=== PATIENT | female | born 1975 | race Caucasian/White ===

== ENCOUNTER 2018-04-12 19:40 | Emergency (ER) | payer OTHER ==
[2018-04-12 20:11] VITALS: BP 134/76; PULSE 89; TEMP 98.5; BMI 41.6
--- NOTE | 2018-04-12 20:12 | PDOC ---
Rapid Medical Evaluation Chief Complaint: Injury Medical Evaluation: 04/12/18 20:08 I have performed a brief in-person evaluation of this patient. The patient presents with a chief complaint of:right ankle injury this am. Pertinent physical exam findings: swelling / pain to right ankle I have ordered the following: right ankle XRAy The patient will proceed to the ED for further evaluation. Discharge Disposition - Diagnosis Ankle pain, right - Referrals Referrals: Oc Hodges MD [Primary Care Provider] - - Patient Instructions - Post Discharge Activity
--- NOTE | 2018-04-12 21:38 | PDOC ---
History of Present Illness - General Chief Complaint: Injury Stated Complaint: FALL Time Seen by Provider: 04/12/18 20:33 - History of Present Illness Initial Comments: 04/12/18 21:36 42-year-old female with past medical history significant for depression presents for evaluation of right ankle pain after a slip and fall at home. She describes an inversion-type injury. She denies hitting her head, post injury nausea vomiting or visual changes. She points to the lateral aspect of the right ankle as the area of her discomfort. Past History - Past Medical History Allergies/Adverse Reactions: Allergies Allergy/AdvReac Type Severity Reaction Status Date / Time No Known Allergies Allergy Verified 04/12/18 20:25 Home Medications: Ambulatory Orders Sertraline HCl 25 mg PO ASDIR 04/12/18 Zolpidem Tartrate [Ambien] 5 mg PO ASDIR 04/12/18 - Suicide/Smoking/Psychosocial Hx Smoking History: Never smoked Hx Alcohol Use: No Drug/Substance Use Hx: No Review of Systems - Review of Systems Musculoskeletal: Yes: Joint Pain *Physical Exam - Vital Signs Last Vital Signs Temp Pulse Resp BP Pulse Ox 98.5 F 89 20 134/76 96 04/12/18 20:08 04/12/18 20:08 04/12/18 20:08 04/12/18 20:08 04/12/18 20:08 - Physical Exam Comments: 04/12/18 21:36 Right ankle skin color and temperature are normal. There is mild swelling about the lateral aspect of the right ankle. There is no tenderness about the knee proximal fibula or along its distal coarse. No tenderness about the medial lateral malleolus or navicular. Mild tenderness over the ATFL minimal tenderness over the base of the fifth metatarsal. She is unable to tolerate stability testing. She has no gross sensorimotor deficits. She is neurovascularly intact. Moderate Sedation - Procedure Monitoring Vital Signs: Procedure Monitoring Vital Signs Temperature 98.5 F 04/12/18 20:08 Pulse Rate 89 04/12/18 20:08 Respiratory Rate 20 04/12/18 20:08 Blood Pressure 134/76 04/12/18 20:08 O2 Sat by Pulse Oximetry (%) 96 04/12/18 20:08 Medical Decision Making - Medical Decision Making 04/12/18 21:37 Radiographs of the right ankle and foot show no evidence of fracture trauma or destructive process *DC/Admit/Observation/Transfer Diagnosis at time of Disposition: Ankle pain, right, Ankle sprain - Discharge Dispostion Disposition: HOME Condition at time of disposition: Stable Decision to Admit order: No - Referrals Referrals: Oc Hodges MD [Primary Care Provider] - Boris Rosas MD [Staff Physician] - - Patient Instructions Printed Discharge Instructions: Ankle Sprain, DI for Ankle Sprain Additional Instructions: He may weight-bear as tolerated with the use of the Aircast and crutches. Return to the emergency room should symptoms worsen or go unresolved. He may take Tylenol Motrin as directed for pain. Follow-up with orthopedic surgery in 2 -3 days for further evaluation and treatment options. - Post Discharge Activity
== END 2018-04-12 21:54 | disposition home or self-care (01) ==
LOC: JERFT 19:40
PROC: 2W3QX1Z Immobilization of Right Lower Leg using Splint (ICD-10-PCS; principal; 2018-04-12)
DX: S93.491A Sprain of other ligament of right ankle, initial encounter (principal); W01.0XXA Fall on same level from slipping, tripping and stumbling without subsequent striking against object, initial encounter; Y93.89 Activity, other specified; Y92.018 Other place in single-family (private) house as the place of occurrence of the external cause; Y99.8 Other external cause status
CPT/HCPCS: 29515; 73610-TC-RT-FY; 73630-TC-RT-FY; 99281-25